=== PATIENT | male | born 1995 | race Caucasian/White ===

== ENCOUNTER 2017-09-16 03:50 | Emergency (ER) | payer OTHER ==
[~2017-09-16] VITALS: Ht 213.4 cm; Wt 72.6 kg
[2017-09-16 03:52] VITALS: BP 106/62
== END 2017-09-16 04:32 ==
LOC: ER 03:50
DX: F10.120 Alcohol abuse with intoxication, uncomplicated (principal); F17.210 Nicotine dependence, cigarettes, uncomplicated